=== PATIENT | female | born 1985 | race Two or more races ===

== ENCOUNTER 2016-11-22 21:24 | Emergency (ER) | payer SELFPAY ==
[~2016-11-22] VITALS: Ht 162.6 cm; Wt 64.4 kg
[2016-11-22 21:37] VITALS: BP 120/78
== END 2016-11-23 00:01 | disposition home or self-care (01) ==
LOC: ER 21:24
DX: J40 Bronchitis, not specified as acute or chronic (principal); R07.9 Chest pain, unspecified
CPT/HCPCS: 71010; 81025